=== PATIENT | male | born 1950 ===

== ENCOUNTER 2022-04-22 18:29 | Emergency (ER) | payer MEDICARE, OTHER ==
[~2022-04-22] VITALS: Ht 172.7 cm; Wt 66.2 kg
[2022-04-22] MEDS ORDERED: TDAP DIPH,PERTUSS,TET VAC/PF 0.5 ML DISP.SYRIN IM ONE (20:00)
--- NOTE | 2022-04-23 00:13 | NUR ---
Late entry: Patient arrived to ER placed to room 2A noted with laceration on face waiting for plan of care. Patient was seen by ER MD, wound care done. ER MD provided discharge instructions, patient remains stable upon leaving ED.
[2022-04-23 00:22] VITALS: BP 137/72
== END 2022-04-22 22:30 | disposition home or self-care (01) ==
LOC: ER 18:34
DX: S02.2XXA Fracture of nasal bones, initial encounter for closed fracture (principal); S01.21XA Laceration without foreign body of nose, initial encounter; Y09 Assault by unspecified means; Y92.410 Unspecified street and highway as the place of occurrence of the external cause; S00.83XA Contusion of other part of head, initial encounter; E11.9 Type 2 diabetes mellitus without complications; I25.10 Atherosclerotic heart disease of native coronary artery without angina pectoris; Z95.1 Presence of aortocoronary bypass graft
CPT/HCPCS: 70486; A4663